=== PATIENT | female | born 1995 | race Caucasian/White ===

== ENCOUNTER 2017-04-03 13:15 | Inpatient (IN) | payer OTHER ==
[~2017-04-03] VITALS: Ht 154.9 cm; Wt 44.5 kg
[2017-04-03] MEDS: POTASSIUM CHLORIDE (SR) 20 MEQ TAB PO SCH ×2 (00:50→20:53)
[2017-04-03 14:51] VITALS: Ht 154.9 cm; Wt 44.5 kg
[2017-04-03] MEDS ORDERED: DOXY1TAB3 PO (14:51)
[2017-04-03 14:52] VITALS: BP 132/75; PULSE 100; RESP 20
--- NOTE | 2017-04-03 15:14 | HP ---
Date/Time of Note Date/Time of Note DATE: 04/03/17 TIME: 15:09 Assessment/Plan VTE Prophylaxis VTE Prophylaxis Intervention: SCD's Assessment/Plan Chief Complaint/Hosp Course Patient is a 21-year-old female who presents with intractable nausea and vomiting. Patient is 11 weeks Assessment and plan Nausea, vomiting , 11 weeks Suprapubic pain -Sent by direct admit, Dr. Bhakta is aware -As patient is and of still having nausea and vomiting, will have to start IV fluids for fluid resuscitation, Zofran until patient able to tolerate p.o. -OB recommendations on nausea medication once patient is able to tolerate p.o. -UA and culture sent out for suprapubic pain, will have to start medication such as ceftriaxone if patient positive -We will follow up in the morning with labs Problems: HPI/ROS Admit Date/Time Admit Date/Time Apr 03, 2017 at 14:02 Hx of Present Illness Patient is a 21-year-old otherwise healthy female who is 11 weeks , obese Dr. Bhakta, who presents as a direct admit from Dr. Bhakta's office for intractable nausea vomiting. Patient states that she has been vomiting for approximately over 1 week and has not had a bowel movement for 6 days. Patient states that she takes no medications and she also has a mild suprapubic pain. Patient denies any chest pain, shortness of breath, headache at this time and states that the last time she vomited was this morning but is nauseous currently. PMH: 11 week PSH: None Meds: none PMH/Family/Social Social History Smoking Status: Never smoker Exam/Review of Systems Vital Signs Vitals Vital Signs Date Time Temp Pulse Resp B/P Pulse Ox O2 Delivery O2 Flow Rate FiO2 04/03/17 14:52 98.0 100 20 132/75 Room Air Exam Exam Physical exam General: Patient is laying in bed and answers questions appropriately Mentation: Patient is alert and oriented 4, Head: Normocephalic atraumatic Eyes: EOMI, pupils reactive to light Neck: Supple, nontender, midline Respiratory: Clear to auscultation bilaterally Cardiovascular: regular rate, no obvious murmurs Gastrointestinal: non-tender to palpation, bowel sounds heard. mild suprapubic tenderness Neurological: Moves all extremities spontaneously Skin: No new skin lesions Medications Medications Current Medications Dextrose/Sodium Chloride (D5-1/2ns) 1,000 ml @ 75 mls/hr [id number] IV ; Start at 15:01 Ondansetron HCl (Zofran Inj) 4 mg Q6H PRN IV NAUSEA AND/OR VOMITING; Start 03/10 at 15:30 Acetaminophen (Tylenol Tab) 650 mg Q6H PRN PO PAIN LEVEL 1-3 OR FEVER; Start 04/03/17 at 15:30 JARED CASTELLANOS Apr 03, 2017 15:14
[2017-04-03] MEDS ORDERED: NACL 0.9% 3 ML SYG IV SCH (15:30)
[2017-04-03] MEDS: DEXTROSE 5%-0.45% NACL 1,000 ML IV SCH (15:38)
[2017-04-03 15:43] LABS: BASOPHILS % 0.1 % (0.0-2.0); EOSINOPHILS % 0.1 % (0.0-7.0); HEMATOCRIT 42.8 % (37.0-47.0); HEMOGLOBIN 15.5 g/dl (12.0-16.0); LYMPHOCYTES # 1.7 10^3/ul (0.8-2.9); LYMPHOCYTES % 10.3 % (18.0-55.0); MEAN CORPUSCULAR HEMOGLOBIN 30.5 pg (29.0-33.0); MEAN CORPUSCULAR HGB CONC 36.2 g/dl (32.0-37.0); MEAN CORPUSCULAR VOLUME 84.3 fl (72.0-104.0); MEAN PLATELET VOLUME 10.2 fl (7.4-10.4); MONOCYTE # 1.2 10^3/ul (0.3-0.9); MONOCYTES % 7.4 % (0.0-13.0); NEUTROPHIL # 13.1 10^3/ul (1.6-7.5); NEUTROPHILS % 81.5 % (30.0-74.0); PLATELET COUNT 409 10^3/UL (140-415); RED BLOOD COUNT 5.08 10^6/ul (4.20-5.40); WHITE BLOOD COUNT 16.1 10^3/ul (4.8-10.8)
[2017-04-03] MEDS: ONDANSETRON 4 MG INJ IV PRN ×2 (15:44→21:47)
[2017-04-03 16:02] LABS: ALBUMIN 4.3 g/dl (3.3-4.9); ALBUMIN/GLOBULIN RATIO 1.19; BILIRUBIN,INDIRECT 0.7 mg/dl (0-1.1); BILIRUBIN,TOTAL 0.7 mg/dl (0.2-1.3); CALCIUM 8.8 mg/dl (8.4-10.2); CREATININE 0.58 mg/dl (0.44-1.00); TOTAL PROTEIN 7.9 g/dl (6.1-8.1)
[2017-04-03 16:04] LABS: POTASSIUM 2.2 mmol/L (3.5-5.1)
[2017-04-03] MEDS ORDERED: POTASSIUM CHLORIDE 250 ML IVPB SCH (17:00)
[2017-04-03 17:02] LABS: MAGNESIUM 2.1 mg/dl (1.7-2.5); PHOSPHORUS 3.9 mg/dl (2.5-4.9)
[2017-04-04] MEDS: ACETAMINOPHEN 325 MG TAB PO PRN ×3 (02:15→23:07)
[2017-04-04 02:38] LABS: ADD UMIC YES; UR ASCORBIC ACID NEGATIVE (NEGATIVE); UR BILIRUBIN (Dip) 1+ mg/dL (NEGATIVE); UR BLOOD (Dip) NEGATIVE (NEGATIVE); UR CLARITY CLEAR (CLEAR); UR COLOR AMBER (YELLOW); UR GLUCOSE (Dip) 3+ mg/dL (NEGATIVE); UR KETONES (Dip) 1+ mg/dL (NEGATIVE); UR LEUKOCYTE ESTERASE (Dip) NEGATIVE Leu/ul (NEGATIVE); UR MUCUS FEW /HPF (NONE SEEN); UR NITRITE (Dip) NEGATIVE (NEGATIVE); UR RBC 1 /HPF (0-5); UR SPECIFIC GRAVITY (Dip) 1.022 (1.003-1.030); UR SQUAMOUS EPITHELIAL CELL FEW /HPF (FEW); UR TOTAL PROTEIN (Dip) 1+ mg/dl (NEGATIVE); UR UROBILINOGEN (Dip) 2+ mg/dL (NEGATIVE)
[2017-04-04] MEDS: ONDANSETRON 4 MG INJ IV PRN ×3 (05:13→20:04)
[2017-04-04] MEDS: DEXTROSE 5%-0.45% NACL 1,000 ML IV SCH (05:13)
[2017-04-04 06:48] LABS: BASOPHILS % 0.2 % (0.0-2.0); EOSINOPHILS # 0.1 10^3/ul (0.0-0.5); EOSINOPHILS % 0.5 % (0.0-7.0); HEMATOCRIT 39.4 % (37.0-47.0); HEMOGLOBIN 14.1 g/dl (12.0-16.0); LYMPHOCYTES # 2.7 10^3/ul (0.8-2.9); MEAN CORPUSCULAR HEMOGLOBIN 30.4 pg (29.0-33.0); MEAN CORPUSCULAR HGB CONC 35.8 g/dl (32.0-37.0); MEAN CORPUSCULAR VOLUME 84.9 fl (72.0-104.0); MEAN PLATELET VOLUME 10.2 fl (7.4-10.4); MONOCYTE # 1.5 10^3/ul (0.3-0.9); MONOCYTES % 9.4 % (0.0-13.0); NEUTROPHIL # 11.5 10^3/ul (1.6-7.5); NEUTROPHILS % 72.1 % (30.0-74.0); PLATELET COUNT 367 10^3/UL (140-415); RED BLOOD COUNT 4.64 10^6/ul (4.20-5.40); RED CELL DISTRIBUTION WIDTH 12.3 % (11.5-14.5)
[2017-04-04 07:03] LABS: ALBUMIN 3.8 g/dl (3.3-4.9); ALBUMIN/GLOBULIN RATIO 1.22; BILIRUBIN,DIRECT 0.1 mg/dl (0.00-0.20); BILIRUBIN,INDIRECT 0.7 mg/dl (0-1.1); BILIRUBIN,TOTAL 0.8 mg/dl (0.2-1.3); CALCIUM 8.7 mg/dl (8.4-10.2); CREATININE 0.56 mg/dl (0.44-1.00); MAGNESIUM 2.2 mg/dl (1.7-2.5); TOTAL PROTEIN 6.9 g/dl (6.1-8.1)
[2017-04-04 07:10] LABS: POTASSIUM 2.4 mmol/L (3.5-5.1)
[2017-04-04] MEDS ORDERED: INFLUENZA VIRUS VACCINE 0.5 ML SYG IM* ONE (09:00)
[2017-04-04] MEDS ORDERED: POTASSIUM CHLORIDE 250 ML IVPB SCH (11:30)
--- NOTE | 2017-04-04 11:43 | PN ---
Date/Time of Note Date/Time of Note DATE: 04/04/17 TIME: 11:43 Assessment/Plan VTE Prophylaxis VTE Prophylaxis Intervention: SCD's Lines/Catheters IV Catheter Type (from Nrsg): Peripheral IV Assessment/Plan Assessment/Plan 1. Nausea with vomiting - IVF and Zofran PRN - Sent as direct admit by OB, Dr. Bhakta - Continue on clear liquid diet and will advance as tolerated 2. Hypokalemia - Replaced. Will continue monitoring - Not tolerating IV K due to burning or PO due to nausea. Will place K in IVF 3. Constipation - Will give milk of mag and monitor for BP - Encourage PO hydration and will try prune juice 4. ?UTI - suprapubic tenderness - UA negative for acute infection but given symptoms will treat with Ceftriaxone - Await urine cultures 5. Transaminitis - may be secondary to dehydration. will continue to monitor and if remains elevated, consult GI 6. Disposition - Continue monitoring Subjective 24 Hr Interval Summary Free Text/Dictation patient still experiencing nausea with vomiting and unable to tolerate PO intake. Also c/o constipation as well. No acute overnight events. Exam/Review of Systems Vital Signs Vitals Vital Signs Date Time Temp Pulse Resp B/P Pulse Ox O2 Delivery O2 Flow Rate FiO2 04/03/17 14:52 98.0 100 20 132/75 Room Air Intake and Output 04/03/17 04/03/17 04/04/17 15:00 23:00 07:00 Intake Total 600 ml 840 ml Output Total 500 ml Balance 600 ml 340 ml Exam General: Patient in mild distress secondary to nausea. Pt is laying in bed and answers questions appropriately Mentation: Patient is alert and oriented 4, Head: Normocephalic atraumatic Eyes: EOMI, pupils reactive to light Neck: Supple, nontender, midline Respiratory: Clear to auscultation bilaterally Cardiovascular: regular rate, no obvious murmurs Gastrointestinal: non-tender to palpation, bowel sounds heard. mild suprapubic tenderness Neurological: Moves all extremities spontaneously Skin: No new skin lesions Results Result Diagram: 04/04/17 0620 04/04/17 0620 Results 24 hrs Laboratory Tests Test 04/03/17 15:37 04/03/17 23:45 04/04/17 06:20 White Blood Count 16.1 H 16.0 H Red Blood Count 5.08 4.64 Hemoglobin 15.5 14.1 Hematocrit 42.8 39.4 Mean Corpuscular Volume 84.3 84.9 Mean Corpuscular Hemoglobin 30.5 30.4 Mean Corpuscular Hemoglobin Concent 36.2 35.8 Red Cell Distribution Width 12.0 12.3 Platelet Count 409 367 Mean Platelet Volume 10.2 10.2 Neutrophils % 81.5 H 72.1 Lymphocytes % 10.3 L 17.0 L Monocytes % 7.4 9.4 Eosinophils % 0.1 0.5 Basophils % 0.1 0.2 Nucleated Red Blood Cells % 0.0 0.0 Neutrophils # 13.1 H 11.5 H Lymphocytes # 1.7 2.7 Monocytes # 1.2 H 1.5 H Eosinophils # 0.0 0.1 Basophils # 0.0 0.0 Nucleated Red Blood Cells # 0.0 0.0 Sodium Level 132 L 133 L Potassium Level 2.2 *L 2.4 *L Chloride Level 78 L 84 L Carbon Dioxide Level 39 H 37 H Anion Gap 17 H 14 Blood Urea Nitrogen 15 13 Creatinine 0.58 0.56 Glucose Level 258 H 137 # Calcium Level 8.8 8.7 Phosphorus Level 3.9 Magnesium Level 2.1 2.2 Total Bilirubin 0.7 0.8 Direct Bilirubin 0.00 0.10 Indirect Bilirubin 0.7 0.7 Aspartate Amino Transf (AST/SGOT) 225 H 211 H Alanine Aminotransferase (ALT/SGPT) 608 H 619 H Alkaline Phosphatase 118 101 Total Protein 7.9 6.9 # Albumin 4.3 3.8 Globulin 3.60 H 3.10 Albumin/Globulin Ratio 1.19 1.22 Urine Color BRITTANY Urine Clarity CLEAR Urine pH 7.0 Urine Specific [place] 1.022 Urine Ketones 1+ H Urine Nitrite NEGATIVE Urine Bilirubin 1+ H Urine Urobilinogen 2+ H Urine Leukocyte Esterase NEGATIVE Urine Microscopic RBC 1 Urine Microscopic WBC 2 Urine Squamous Epithelial Cells FEW Urine Mucus FEW A Urine Hemoglobin NEGATIVE Urine Glucose 3+ H Urine Total Protein 1+ H Medications Medications Current Medications Dextrose/Sodium Chloride (D5-1/2ns) 1,000 ml @ 75 mls/hr [id number] IV Last administered on 04/04/17t 05:13; Admin Dose 75 MLS/HR; Start 04/03/17 at 15:01 Ondansetron HCl (Zofran Inj) 4 mg Q6H PRN IV NAUSEA AND/OR VOMITING Last administered on 04/04/17 05:13; Admin Dose 4 MG; Start 04/03/17 at 15:30 Acetaminophen 650 mg 650 mg Q6H PRN PO PAIN LEVEL 1-3 OR FEVER Last administered on 04/04/17 02:15; Admin Dose 650 MG; Start 04/03/17 at 15:30 Potassium Chloride (KCl 40 MEQ/250 ML NS) 250 ml @ 62.5 mls/hr Q4H IVPB ; Start 04/04/17 at 11:30; Stop 04/04/17 at 19:29 PRESTON LOREDO MD Apr 04, 2017 11:43
[2017-04-04] MEDS: MAGNESIUM HYDROXIDE 30ML CUP PO SCH (12:46)
[2017-04-04] MEDS: CEFTRIAXONE 1 GM/50 ML (PMX) 50 ML IVPB SCH (13:15)
[2017-04-04] MEDS: D5W-0.45 NACL + KCL 40 MEQ 1,000 ML IV SCH (13:15)
[2017-04-05] MEDS: D5W-0.45 NACL + KCL 40 MEQ 1,000 ML IV SCH ×2 (01:52→15:09)
[2017-04-05 06:32] LABS: BASOPHILS % 0.3 % (0.0-2.0); EOSINOPHILS # 0.1 10^3/ul (0.0-0.5); EOSINOPHILS % 0.8 % (0.0-7.0); HEMATOCRIT 34.9 % (37.0-47.0); HEMOGLOBIN 12.6 g/dl (12.0-16.0); LYMPHOCYTES # 2.3 10^3/ul (0.8-2.9); LYMPHOCYTES % 16.3 % (18.0-55.0); MEAN CORPUSCULAR HGB CONC 36.1 g/dl (32.0-37.0); MEAN PLATELET VOLUME 10.1 fl (7.4-10.4); MONOCYTE # 1.4 10^3/ul (0.3-0.9); MONOCYTES % 10.2 % (0.0-13.0); NEUTROPHILS % 71.7 % (30.0-74.0); PLATELET COUNT 329 10^3/UL (140-415); RED BLOOD COUNT 4.06 10^6/ul (4.20-5.40); RED CELL DISTRIBUTION WIDTH 12.2 % (11.5-14.5)
[2017-04-05] MEDS: ONDANSETRON 4 MG INJ IV PRN ×2 (07:43→20:17)
[2017-04-05 07:55] LABS: ALBUMIN/GLOBULIN RATIO 0.93; BILIRUBIN,INDIRECT 0.4 mg/dl (0-1.1); BILIRUBIN,TOTAL 0.4 mg/dl (0.2-1.3); CALCIUM 8.1 mg/dl (8.4-10.2); CREATININE 0.45 mg/dl (0.44-1.00); MAGNESIUM 2.3 mg/dl (1.7-2.5); TOTAL PROTEIN 6.2 g/dl (6.1-8.1)
[2017-04-05 07:59] LABS: POTASSIUM 2.8 mmol/L (3.5-5.1)
[2017-04-05] MEDS: MAGNESIUM HYDROXIDE 30ML CUP PO SCH (09:00)
[2017-04-05] MEDS ORDERED: POTASSIUM CHLORIDE (SR) 20 MEQ TAB PO STA (09:04)
[2017-04-05] MEDS: ACETAMINOPHEN 325 MG TAB PO PRN (10:02)
--- NOTE | 2017-04-05 11:15 | PN ---
Date/Time of Note Date/Time of Note DATE: 04/05/17 TIME: 11:00 OB Subjective Subjective Subjective still having severe nausea and vomiting vomiting x6 yesterday this morning already x6 c/o epigastric discomfort OB Objective Objective Objective K+ 2.8 AST/ALT > 112/400 urine culture not sig abdomen soft no tenderness OB Assessment/Plan Other Assessment: [id number]+ hyperemesis gravidarum R/o other cause P throid panel hep panel zofran ist trimester poss risk of teratogenicity suggest metoclopramide doxylamine/pyridoxine pyridoxine 50mg IV ANNAMARIA GARCIA MD Apr 05, 2017 11:14
[2017-04-05 12:21] LABS: HAAIG REFLEX REFLEX FILED
--- NOTE | 2017-04-05 12:41 | PN ---
Date/Time of Note Date/Time of Note DATE: 04/05/17 TIME: 12:35 Assessment/Plan VTE Prophylaxis VTE Prophylaxis Intervention: ambulation Lines/Catheters IV Catheter Type (from Nrsg): Peripheral IV Assessment/Plan Assessment/Plan 1. Nausea with vomiting - IVF and will change Zofran to metoclopramide per Dr. Moralez recommendations - Sent as direct admit by OB, Dr. Bhakta - Continue on clear liquid diet and will advance as tolerated 2. Hypokalemia - Replaced. Will continue monitoring 3. Constipation - Will give milk of mag and monitor for BP - Encourage PO hydration and will try prune juice 4. ?UTI - suprapubic tenderness - UA negative for acute infection but given symptoms will treat with Ceftriaxone - Await urine cultures 5. Transaminitis - may be secondary to dehydration. will continue to monitor - trending downward 6. Disposition - Continue monitoring Subjective 24 Hr Interval Summary Free Text/Dictation Patient not feeling well today and more weak than yesterday. Tolerating clear liquids but still experiencing nausea with vomiting. No acute overnight events. Exam/Review of Systems Vital Signs Vitals Vital Signs Date Time Temp Pulse Resp B/P Pulse Ox O2 Delivery O2 Flow Rate FiO2 04/03/17 14:52 98.0 100 20 132/75 Room Air Intake and Output 04/04/17 04/04/17 04/05/17 15:00 23:00 07:00 Intake Total 575 ml 625 ml 800 ml Output Total 700 ml Balance 575 ml -75 ml 800 ml Exam General: Patient in mild distress and fatigued, laying in bed and answers questions appropriately Mentation: Patient is alert and oriented 4, Head: Normocephalic atraumatic Eyes: EOMI, pupils reactive to light Neck: Supple, nontender, midline Respiratory: Clear to auscultation bilaterally Cardiovascular: regular rate, no obvious murmurs Gastrointestinal: non-tender to palpation, bowel sounds heard. mild suprapubic tenderness Neurological: Moves all extremities spontaneously Skin: No new skin lesions Results Result Diagram: 04/05/1715 04/05/17 0615 Results 24 hrs Laboratory Tests Test 04/05/17 06:15 04/05/17 11:38 White Blood Count 14.0 H Red Blood Count 4.06 L Hemoglobin 12.6 Hematocrit 34.9 L Mean Corpuscular Volume 86.0 Mean Corpuscular Hemoglobin 31.0 Mean Corpuscular Hemoglobin Concent 36.1 Red Cell Distribution Width 12.2 Platelet Count 329 Mean Platelet Volume 10.1 Neutrophils % 71.7 Lymphocytes % 16.3 L Monocytes % 10.2 Eosinophils % 0.8 Basophils % 0.3 Nucleated Red Blood Cells % 0.0 Neutrophils # 10.0 H Lymphocytes # 2.3 Monocytes # 1.4 H Eosinophils # 0.1 Basophils # 0.0 Nucleated Red Blood Cells # 0.0 Sodium Level 132 L Potassium Level 2.8 *L Chloride Level 93 L Carbon Dioxide Level 33 H Anion Gap 9 # Blood Urea Nitrogen 7 Creatinine 0.45 Glucose Level 92 # Calcium Level 8.1 L Magnesium Level 2.3 Total Bilirubin 0.4 Direct Bilirubin 0.00 Indirect Bilirubin 0.4 Aspartate Amino Transf (AST/SGOT) 110 H Alanine Aminotransferase (ALT/SGPT) 462 H Alkaline Phosphatase 80 Total Protein 6.2 Albumin 3.0 L Globulin 3.20 Albumin/Globulin Ratio 0.93 Hepatitis B Surface Antigen Pending Hepatitis B Core Total Antibody Pending Hepatitis C Antibody Pending Medications Medications Current Medications Ondansetron HCl (Zofran Inj) 4 mg Q6H PRN IV NAUSEA AND/OR VOMITING Last administered on 04/05/17 07:43; Admin Dose 4 MG; Start 04/03/17 at 15:30 Acetaminophen 650 mg 650 mg Q6H PRN PO PAIN LEVEL 1-3 OR FEVER Last administered on 04/05/17 10:02; Admin Dose 650 MG; Start 04/03/17 at 15:30 Ceftriaxone Sodium 50 ml @ 100 mls/hr Q24H IVPB Last administered on 13:15; Admin Dose 100 MLS/HR; Start 04/04/17 at 13:00 Potassium Chloride/Dextrose/ Sod Cl (D5-1/2ns + KCl 40 Meq) 1,000 ml @ 75 mls/ hr [id number] IV Last administered on 04/05/17 01:52; Admin Dose 75 MLS/HR; Start 04/04/17 at 12:30 Magnesium Hydroxide (Milk Of Mag) 30 ml DAILY PO Last administered on 12:46; Admin Dose 30 ML; Start 04/04/17 at 12:30 Potassium Chloride (Klor-Con 20) 40 meq 1300 ONCE PO ; Start 04/05/17 at 13:00 ; Stop 04/05/17 at 13:01 PRESTON LOREDO MD Apr 05, 2017 12:41
[2017-04-05 12:58] LABS: FREE T3 5.77 pg/ml (2.77-5.27)
[2017-04-05] MEDS ORDERED: POTASSIUM CHLORIDE (SR) 20 MEQ TAB PO ONE (13:00)
[2017-04-05 13:31] LABS: HEPATITIS B CORE ANTIBODY NEGATIVE (NEGATIVE)
[2017-04-05] MEDS: CEFTRIAXONE 1 GM/50 ML (PMX) 50 ML IVPB SCH (13:54)
[2017-04-05 13:59] LABS: THYROID STIMULATING HORMONE < 0.015 MIU/L (0.465-4.680)
[2017-04-05] MEDS: METOCLOPRAMIDE 10 MG INJ IV PRN (15:14)
[2017-04-05] MEDS ORDERED: POTASSIUM CHLORIDE IVPB SCH (15:30)
[2017-04-05] MEDS ORDERED: SOD CHLORIDE 0.9% IVPB SCH (15:30)
[2017-04-06] MEDS: ONDANSETRON 4 MG INJ IV PRN (02:43)
[2017-04-06] MEDS: D5W-0.45 NACL + KCL 40 MEQ 1,000 ML IV SCH ×2 (05:15→17:08)
[2017-04-06 06:19] LABS: ABNORMAL IP MESSAGE 1; BASOPHILS % 0.2 % (0.0-2.0); EOSINOPHILS % 0.3 % (0.0-7.0); HEMATOCRIT 33.8 % (37.0-47.0); HEMOGLOBIN 11.7 g/dl (12.0-16.0); LYMPHOCYTES # 1.6 10^3/ul (0.8-2.9); MEAN CORPUSCULAR HEMOGLOBIN 30.5 pg (29.0-33.0); MEAN CORPUSCULAR HGB CONC 34.6 g/dl (32.0-37.0); MEAN CORPUSCULAR VOLUME 88.3 fl (72.0-104.0); MEAN PLATELET VOLUME 10.3 fl (7.4-10.4); MONOCYTE # 1.6 10^3/ul (0.3-0.9); MONOCYTES % 10.9 % (0.0-13.0); NEUTROPHIL # 11.4 10^3/ul (1.6-7.5); NEUTROPHILS % 76.7 % (30.0-74.0); PLATELET COUNT 287 10^3/UL (140-415); RED BLOOD COUNT 3.83 10^6/ul (4.20-5.40); RED CELL DISTRIBUTION WIDTH 13.1 % (11.5-14.5); WHITE BLOOD COUNT 14.9 10^3/ul (4.8-10.8)
[2017-04-06 06:42] LABS: ALBUMIN 2.9 g/dl (3.3-4.9); BILIRUBIN,INDIRECT 0.3 mg/dl (0-1.1); BILIRUBIN,TOTAL 0.3 mg/dl (0.2-1.3); CREATININE 0.44 mg/dl (0.44-1.00); MAGNESIUM 1.9 mg/dl (1.7-2.5); POTASSIUM 3.6 mmol/L (3.5-5.1); TOTAL PROTEIN 5.8 g/dl (6.1-8.1)
[2017-04-06 06:58] LABS: POSITIVE DIFF @See below
[2017-04-06] MEDS: MAGNESIUM HYDROXIDE 30ML CUP PO SCH (09:33)
[2017-04-06] MEDS ORDERED: VITAMIN A & D 5 GM OINT PACKET TOP PRN (11:30)
[2017-04-06] MEDS ORDERED: CEPASTAT LOZENGE MT PRN (11:30)
[2017-04-06] MEDS: CEFTRIAXONE 1 GM/50 ML (PMX) 50 ML IVPB SCH (12:43)
--- NOTE | 2017-04-06 14:24 | PN ---
Date/Time of Note Date/Time of Note DATE: 04/06/17 TIME: 14:22 Assessment/Plan VTE Prophylaxis VTE Prophylaxis Intervention: SCD's Lines/Catheters IV Catheter Type (from Nrsg): Peripheral IV Assessment/Plan Assessment/Plan 1. Hyperemesis gravidarum - IVF and will change Zofran to metoclopramide per Dr. Moralez recommendations - Sent as direct admit by OB, Dr. Bhakta - Continue on clear liquid diet and will advance as tolerated 2. Acute thyroiditis - Patient has low TSH with elevated T3 and T4. Consultation placed to Endocrinology for further recommendations. Appreciate consultation 3. Constipation - Will give milk of mag and monitor for BP - Encourage PO hydration and will try prune juice 4. ?UTI - suprapubic tenderness - UA negative for acute infection but given symptoms will treat with Ceftriaxone - Await urine cultures 5. Transaminitis - may be secondary to dehydration. will continue to monitor - trending downward 6. Hypokalemia- improving - Replaced. Will continue monitoring 7. Disposition - Continue monitoring until improvement in hyperemesis and able to tolerate PO intake Subjective 24 Hr Interval Summary Free Text/Dictation Patient c/o sore throat for repeated episodes of emesis. Still not able to keep anything down. Also complaining of chapped lips. No acute overnight events. Exam/Review of Systems Vital Signs Vitals Vital Signs Date Time Temp Pulse Resp B/P Pulse Ox O2 Delivery O2 Flow Rate FiO2 04/03/17 14:52 98.0 100 20 132/75 Room Air Intake and Output 04/05/17 04/05/17 04/06/17 14:59 22:59 06:59 Intake Total 275 ml 300 ml 600 ml Output Total 750 ml 750 ml 1100 ml Balance -475 ml -450 ml -500 ml Exam General: Patient in distress, fatigued, curled in position under covers, answers questions appropriately Mentation: Patient is alert and oriented 4, Head: Normocephalic atraumatic Eyes: EOMI, pupils reactive to light Neck: Supple, nontender, midline Respiratory: Clear to auscultation bilaterally Cardiovascular: regular rate, no obvious murmurs Gastrointestinal: non-tender to palpation, bowel sounds heard. mild suprapubic tenderness Neurological: Moves all extremities spontaneously Skin: No new skin lesions Results Result Diagram: 04/06/1731 04/06/17530 Results 24 hrs Laboratory Tests Test 04/06/17 05:31 White Blood Count 14.9 H Red Blood Count 3.83 L Hemoglobin 11.7 L Hematocrit 33.8 L Mean Corpuscular Volume 88.3 Mean Corpuscular Hemoglobin 30.5 Mean Corpuscular Hemoglobin Concent 34.6 Red Cell Distribution Width 13.1 Platelet Count 287 Mean Platelet Volume 10.3 Neutrophils % 76.7 H Lymphocytes % 11.0 L Monocytes % 10.9 Eosinophils % 0.3 Basophils % 0.2 Nucleated Red Blood Cells % 0.0 Neutrophils # 11.4 H Lymphocytes # 1.6 Monocytes # 1.6 H Eosinophils # 0.0 Basophils # 0.0 Nucleated Red Blood Cells # 0.0 Sodium Level 136 Potassium Level 3.6 Chloride Level 102 Carbon Dioxide Level 28 Anion Gap 10 Blood Urea Nitrogen 3 L Creatinine 0.44 Glucose Level 84 Calcium Level 8.0 L Magnesium Level 1.9 Total Bilirubin 0.3 Direct Bilirubin 0.00 Indirect Bilirubin 0.3 Aspartate Amino Transf (AST/SGOT) 82 H Alanine Aminotransferase (ALT/SGPT) 366 H Alkaline Phosphatase 82 Total Protein 5.8 L Albumin 2.9 L Globulin 2.90 Albumin/Globulin Ratio 1.00 Medications Medications Current Medications Acetaminophen 650 mg 650 mg Q6H PRN PO PAIN LEVEL 1-3 OR FEVER Last administered on 04/05/17 10:02; Admin Dose 650 MG; Start 04/03/17 at 15:30 Ceftriaxone Sodium 50 ml @ 100 mls/hr Q24H IVPB Last administered on 12:43; Admin Dose 100 MLS/HR; Start 04/04/17 at 13:00 Potassium Chloride/Dextrose/ Sod Cl (D5-1/2ns + KCl 40 Meq) 1,000 ml @ 75 mls/ hr [id number] IV Last administered on 04/06/17 05:15; Admin Dose 75 MLS/HR; Start 04/04/17 at 12:30 Magnesium Hydroxide (Milk Of Mag) 30 ml DAILY PO Last administered on 09:33; Admin Dose 30 ML; Start 04/04/17 at 12:30 Metoclopramide HCl (Reglan) 5 mg Q4H PRN IV nausea Last administered on 15:14; Admin Dose 5 MG; Start 04/05/17 at 13:00 Ondansetron HCl (Zofran Inj) 4 mg Q6H PRN IV NAUSEA AND/OR VOMITING Last administered on 04/06/17 02:43; Admin Dose 4 MG; Start 04/05/17 at 15:00 Phenol (Cepastat Lozenge) 1 lozenge Q1H PRN MT sore throat; Start 04/06/17 at 11:30 Vitamin A/Vitamin D (Vitamin A & D Oint) 1 applic BID PRN TOP chapped lips Last administered on 04/06/17 12:43; Admin Dose 1 APPLIC; Start 04/06/17 at 11:30 PRESTON LOREDO MD Apr 06, 2017 14:24
[2017-04-06] MEDS: METOCLOPRAMIDE 10 MG INJ IV PRN (17:08)
--- NOTE | 2017-04-06 19:52 | PN ---
Date/Time of Note Date/Time of Note DATE: 04/06/17 TIME: 19:46 OB Subjective Subjective Subjective feels better having small feeding helps c/o sore throat mostlikely from vomiting OB Objective Objective Objective I&O pos balance today tongue moist \thyroid high K+ 3.6 LFT better hepatitis panel neg OB Assessment/Plan Other Assessment: hyperemesis gravidarum IUP 11w plus hyperthyroidism endocrinology consult requested by hospitalist Other plan: cont current regimen more frequent small feeding ANNAMARIA GARCIA MD Apr 06, 2017 19:52
[2017-04-06] MEDS: PYRIDOXINE IV SCH (22:27)
[2017-04-06] MEDS: SOD CHLORIDE 0.9% IV SCH (22:27)
[2017-04-07] MEDS: ONDANSETRON 4 MG INJ IV PRN (01:34)
[2017-04-07 06:28] LABS: BASOPHILS % 0.3 % (0.0-2.0); EOSINOPHILS # 0.1 10^3/ul (0.0-0.5); EOSINOPHILS % 0.4 % (0.0-7.0); HEMATOCRIT 33.5 % (37.0-47.0); HEMOGLOBIN 11.6 g/dl (12.0-16.0); LYMPHOCYTES # 1.5 10^3/ul (0.8-2.9); LYMPHOCYTES % 12.5 % (18.0-55.0); MEAN CORPUSCULAR HEMOGLOBIN 30.8 pg (29.0-33.0); MEAN CORPUSCULAR HGB CONC 34.6 g/dl (32.0-37.0); MEAN CORPUSCULAR VOLUME 88.9 fl (72.0-104.0); MONOCYTE # 1.5 10^3/ul (0.3-0.9); MONOCYTES % 12.8 % (0.0-13.0); NEUTROPHIL # 8.5 10^3/ul (1.6-7.5); PLATELET COUNT 280 10^3/UL (140-415); RED BLOOD COUNT 3.77 10^6/ul (4.20-5.40); RED CELL DISTRIBUTION WIDTH 13.1 % (11.5-14.5); WHITE BLOOD COUNT 11.7 10^3/ul (4.8-10.8)
[2017-04-07] MEDS: D5W-0.45 NACL + KCL 40 MEQ 1,000 ML IV SCH ×2 (06:34→19:52)
[2017-04-07] MEDS: METOCLOPRAMIDE 10 MG INJ IV PRN ×3 (06:40→22:10)
[2017-04-07 07:01] LABS: ALBUMIN 2.9 g/dl (3.3-4.9); BILIRUBIN,INDIRECT 0.3 mg/dl (0-1.1); BILIRUBIN,TOTAL 0.3 mg/dl (0.2-1.3); CALCIUM 8.1 mg/dl (8.4-10.2); CREATININE 0.43 mg/dl (0.44-1.00); MAGNESIUM 1.9 mg/dl (1.7-2.5); POTASSIUM 4.3 mmol/L (3.5-5.1); TOTAL PROTEIN 5.8 g/dl (6.1-8.1)
[2017-04-07 08:38] LABS: FREE T3 4.18 pg/ml (2.77-5.27)
[2017-04-07 08:51] LABS: THYROID STIMULATING HORMONE 0.016 MIU/L (0.465-4.680)
[2017-04-07] MEDS: SOD CHLORIDE 0.9% IV SCH ×2 (08:53→21:11)
[2017-04-07] MEDS: PYRIDOXINE IV SCH ×2 (08:53→21:11)
[2017-04-07] MEDS: MAGNESIUM HYDROXIDE 30ML CUP PO SCH (09:00)
--- NOTE | 2017-04-07 12:58 | PN ---
Date/Time of Note Date/Time of Note DATE: 04/07/17 TIME: 12:54 OB Subjective Subjective Subjective feels much stronger able to keep food slightly longer OB Objective Objective Objective FT4 2.2 LFT still high OB Assessment/Plan Other Assessment: IUP 12w hyperemesis gravidarum plan small frequent feeding will try ANNAMARIA Cedillo MD Apr 07, 2017 12:58
[2017-04-07] MEDS ORDERED: DIPHENHYDRAMINE 50 MG INJ IV ONE (13:00)
--- NOTE | 2017-04-07 13:16 | CONS ---
Date/Time of Note Date/Time of Note DATE: 04/07/17 TIME: 13:11 Assessment/Plan Assessment/Plan Problems: (1) Hyperemesis gravidarum with dehydration Status: Acute Comment: She is in the first trimester. She is roughly a week 11 of . Hopefully with advancing maturity of the with hyperemesis will resolve. Our colleagues in obstetric are managing this (2) Hyperemesis gravidarum with metabolic disturbance Status: Acute Comment: I believe that in this particular case there is no evidence of pre- existing thyroid disorder. In addition she does not have thyromegaly or exophthalmos or other findings to suggest Graves' disease. In addition repeating her blood tests after successful rehydration indicates improvement in her thyroid status toward a baseline state. In this setting I actually am in agreement with Dr. 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 This is an entity it usually occurs between the 10th and 12th week of gestation and is caused by the very high hCG level stimulating the thyroid gland is across reactive moiety to the TSH receptors on the thyroid. It is usually self-limited and does not require specific treatment other than the treatment of hyperemesis gravidarum and resolves in the second trimester. As such I would not initiate pharmaceutical therapy in this young lady and would observe her. I would repeat her blood tests in 1 week and then in 2 weeks. Consultation Date/Type/Reason Admit Date/Time Apr 03, 2017 at 14:02 Date of Consultation: Apr 07, 2017 Type of Consultation: Endocrinology Reason for Consultation Hyperthyroidism at the tail end of the first trimester . In the setting of hyperemesis gravidarum. Referring Provider: PRESTON RESENDEZ MD Hx of Present Illness Alex 21-year-old female Ab0 with last menstrual cycle January 09, 2017 with an EDC of October 16, 2017. No known prior history of thyroid disorder. She was admitted to the hospital with hyperemesis gravidarum with severe dehydration. She has been rehydrated what was found to be hyperthyroid. In the recent past she has had some symptoms consistent with thyrotoxicosis but this is relatively recent and did not predate the . Constitutional: no complaints (Denies fevers chills or sweats) Eyes: no complaints (And denies any bulging of the eyes) ENT: no complaints Respiratory: no complaints Cardiovascular: no complaints Gastrointestinal: nausea, vomiting Genitourinary: no complaints Musculoskeletal: no complaints Past Medical History Medical History: no pertinent history Past Surgical History Past Surgical Hx: noncontributory Family History Significant Family History: no pertinent family hx Social History Alcohol Use: none Smoking Status: Never smoker Drug Use: none Exam/Review of Systems Vital Signs Vitals Vital Signs Date Time Temp Pulse Resp B/P Pulse Ox O2 Delivery O2 Flow Rate FiO2 04/03/17 14:52 98.0 100 20 132/75 Room Air Intake and Output 04/06/17 04/06/17 04/07/17 14:59 22:59 06:59 Intake Total 650 ml 450 ml 600 ml Output Total 350 ml Balance 300 ml 450 ml 600 ml Exam Please note this has after successful treatment and rehydration. Patient is still rather obviously nauseated and occasionally has dry heaves during the exam Constitutional: alert, oriented Head: atraumatic, normocephalic Eyes: EOMI, PERRL, nl conjunctiva, nl lids, nl sclera, other (There is no exophthalmos) Neck: non-tender, other (There is no thyromegaly or thyroid nodules), supple Respiratory: clear to auscultation, normal air movement Cardiovascular: nl pulses, regular rate and rhythm Results Result Diagram: 04/07/1755504/07/17 0556 Results 24 hrs Laboratory Tests Test 04/07/17 05:56 White Blood Count 11.7 #H Red Blood Count 3.77 L Hemoglobin 11.6 L Hematocrit 33.5 L Mean Corpuscular Volume 88.9 Mean Corpuscular Hemoglobin 30.8 Mean Corpuscular Hemoglobin Concent 34.6 Red Cell Distribution Width 13.1 Platelet Count 280 Mean Platelet Volume 10.0 Neutrophils % 73.0 Lymphocytes % 12.5 L Monocytes % 12.8 Eosinophils % 0.4 Basophils % 0.3 Nucleated Red Blood Cells % 0.0 Neutrophils # 8.5 H Lymphocytes # 1.5 Monocytes # 1.5 H Eosinophils # 0.1 Basophils # 0.0 Nucleated Red Blood Cells # 0.0 Erythrocyte Sedimentation Rate 9 Sodium Level 135 Potassium Level 4.3 Chloride Level 103 Carbon Dioxide Level 27 Anion Gap 9 Blood Urea Nitrogen 2 L Creatinine 0.43 L Glucose Level 89 Calcium Level 8.1 L Magnesium Level 1.9 Total Bilirubin 0.3 Direct Bilirubin 0.00 Indirect Bilirubin 0.3 Aspartate Amino Transf (AST/SGOT) 77 H Alanine Aminotransferase (ALT/SGPT) 308 H Alkaline Phosphatase 95 Total Protein 5.8 L Albumin 2.9 L Globulin 2.90 Albumin/Globulin Ratio 1.00 Thyroid Stimulating Hormone (TSH) 0.016 L Free Thyroxine 2.22 Free Triiodothyronine (T3) pg/mL 4.18 Medications Medications Current Medications Acetaminophen 650 mg 650 mg Q6H PRN PO PAIN LEVEL 1-3 OR FEVER Last administered on 04/05/17 10:02; Admin Dose 650 MG; Start 04/03/17 at 15:30 Ceftriaxone Sodium 50 ml @ 100 mls/hr Q24H IVPB Last administered on 12:43; Admin Dose 100 MLS/HR; Start 04/04/17 at 13:00 Potassium Chloride/Dextrose/ Sod Cl (D5-1/2ns + KCl 40 Meq) 1,000 ml @ 75 mls/ hr [id number] IV Last administered on 04/07/17 06:34; Admin Dose 75 MLS/HR; Start 04/04/17 at 12:30 Magnesium Hydroxide (Milk Of Mag) 30 ml DAILY PO Last administered on 09:33; Admin Dose 30 ML; Start 04/04/17 at 12:30 Metoclopramide HCl (Reglan) 5 mg Q4H PRN IV nausea Last administered on 06:40; Admin Dose 5 MG; Start 04/05/17 at 13:00 Ondansetron HCl (Zofran Inj) 4 mg Q6H PRN IV NAUSEA AND/OR VOMITING Last administered on 04/07/17 01:34; Admin Dose 4 MG; Start 04/05/17 at 15:00 Phenol (Cepastat Lozenge) 1 lozenge Q1H PRN MT sore throat; Start 04/06/17 at 11:30 Vitamin A/Vitamin D 1 applic 1 applic BID PRN TOP chapped lips Last administered on 04/06/17 12:43; Admin Dose 1 APPLIC; Start 04/06/17 at 11:30 Pyridoxine HCl/ Sodium Chloride (Vitamin B6/NS) 50.25 ml @ 201 mls/hr Q12 IV Last administered on 04/07/17 08:53; Admin Dose 201 MLS/HR; Start 04/06/17 at 22:00 SRIKANTH MANDUJANO MD Apr 07, 2017 13:16
[2017-04-07 13:56] LABS: THYROID MICROSOMAL ANTIBODY 7 IU/mL (<9)
--- NOTE | 2017-04-07 14:09 | PN ---
Date/Time of Note Date/Time of Note DATE: 04/07/17 TIME: 13:58 Assessment/Plan VTE Prophylaxis VTE Prophylaxis Intervention: SCD's Lines/Catheters IV Catheter Type (from Nrsg): Peripheral IV Assessment/Plan Assessment/Plan 1. Hyperemesis gravidarum - continue hydration while able to tolerate PO diet - Given dose of Benadryl per OB recommendations - OB consult appreciated - Sent as direct admit by OB, Dr. Bhakta - Continue on clear liquid diet and will advance as tolerated. still vomiting after meals 2. Gestational thyrotoxicosis - Patient repeat thyroid studies show normalization of T3 and T4 and improvement in TSH. - Endocrinology consultation appreciated. Recommending no intervention at this time and to repeat thyroid studies in 1 week and 2 weeks 3. Constipation- resolved - encouraged to continue PO hydration 4. ?UTI - suprapubic tenderness - UA negative for acute infection but given symptoms will treat with Ceftriaxone - Cultures growing mixed ary. 5. Transaminitis- improving - may be secondary to dehydration. will continue to monitor - trending downward 6. Hypokalemia- improved - Will continue monitoring 7. Disposition - Continue monitoring until improvement in hyperemesis and able to tolerate PO intake Subjective 24 Hr Interval Summary Free Text/Dictation Patient feeling better but still experiencing vomiting after meals. Has some LLQ abdominal discomfort which is most likely secondary to vomiting. Exam/Review of Systems Vital Signs Vitals Vital Signs Date Time Temp Pulse Resp B/P Pulse Ox O2 Delivery O2 Flow Rate FiO2 04/03/17 14:52 98.0 100 20 132/75 Room Air Intake and Output 04/06/17 04/06/17 04/07/17 15:00 23:00 07:00 Intake Total 650 ml 525 ml 600 ml Output Total 350 ml Balance 300 ml 525 ml 600 ml Exam General: Patient resting comfortably, in no acute distress. Answers questions appropriately Mentation: Patient is alert and oriented 4, Head: Normocephalic atraumatic Eyes: EOMI, pupils reactive to light Neck: Supple, nontender, midline Respiratory: Clear to auscultation bilaterally Cardiovascular: regular rate, no obvious murmurs Gastrointestinal: Mild tenderness to palpation LLQ, soft, bowel sounds heard. no rebound or guarding Neurological: Moves all extremities spontaneously Skin: No new skin lesions Results Result Diagram: 04/07/17 0556 04/07/17 0556 Results 24 hrs Laboratory Tests Test 04/07/17 05:56 White Blood Count 11.7 #H Red Blood Count 3.77 L Hemoglobin 11.6 L Hematocrit 33.5 L Mean Corpuscular Volume 88.9 Mean Corpuscular Hemoglobin 30.8 Mean Corpuscular Hemoglobin Concent 34.6 Red Cell Distribution Width 13.1 Platelet Count 280 Mean Platelet Volume 10.0 Neutrophils % 73.0 Lymphocytes % 12.5 L Monocytes % 12.8 Eosinophils % 0.4 Basophils % 0.3 Nucleated Red Blood Cells % 0.0 Neutrophils # 8.5 H Lymphocytes # 1.5 Monocytes # 1.5 H Eosinophils # 0.1 Basophils # 0.0 Nucleated Red Blood Cells # 0.0 Erythrocyte Sedimentation Rate 9 Sodium Level 135 Potassium Level 4.3 Chloride Level 103 Carbon Dioxide Level 27 Anion Gap 9 Blood Urea Nitrogen 2 L Creatinine 0.43 L Glucose Level 89 Calcium Level 8.1 L Magnesium Level 1.9 Total Bilirubin 0.3 Direct Bilirubin 0.00 Indirect Bilirubin 0.3 Aspartate Amino Transf (AST/SGOT) 77 H Alanine Aminotransferase (ALT/SGPT) 308 H Alkaline Phosphatase 95 Total Protein 5.8 L Albumin 2.9 L Globulin 2.90 Albumin/Globulin Ratio 1.00 Thyroid Stimulating Hormone (TSH) 0.016 L Free Thyroxine 2.22 Free Triiodothyronine (T3) pg/mL 4.18 Medications Medications Current Medications Acetaminophen 650 mg 650 mg Q6H PRN PO PAIN LEVEL 1-3 OR FEVER Last administered on 04/05/17 10:02; Admin Dose 650 MG; Start 04/03/17 at 15:30 Ceftriaxone Sodium 50 ml @ 100 mls/hr Q24H IVPB Last administered on 12:43; Admin Dose 100 MLS/HR; Start 04/04/17 at 13:00 Potassium Chloride/Dextrose/ Sod Cl (D5-1/2ns + KCl 40 Meq) 1,000 ml @ 75 mls/ hr [id number] IV Last administered on 04/07/17 06:34; Admin Dose 75 MLS/HR; Start 04/04/17 at 12:30 Magnesium Hydroxide (Milk Of Mag) 30 ml DAILY PO Last administered on 09:33; Admin Dose 30 ML; Start 04/04/17 at 12:30 Metoclopramide HCl (Reglan) 5 mg Q4H PRN IV nausea Last administered on 06:40; Admin Dose 5 MG; Start 04/05/17 at 13:00 Ondansetron HCl (Zofran Inj) 4 mg Q6H PRN IV NAUSEA AND/OR VOMITING Last administered on 04/07/17 01:34; Admin Dose 4 MG; Start 04/05/17 at 15:00 Phenol (Cepastat Lozenge) 1 lozenge Q1H PRN MT sore throat; Start 04/06/17 at 11:30 Vitamin A/Vitamin D 1 applic 1 applic BID PRN TOP chapped lips Last administered on 04/06/17 12:43; Admin Dose 1 APPLIC; Start 04/06/17 at 11:30 Pyridoxine HCl/ Sodium Chloride (Vitamin B6/NS) 50.25 ml @ 201 mls/hr Q12 IV Last administered on 04/07/17 08:53; Admin Dose 201 MLS/HR; Start 04/06/17 at 22:00 PRESTON LOREDO MD Apr 07, 2017 14:09
[2017-04-07] MEDS: CEFTRIAXONE 1 GM/50 ML (PMX) 50 ML IVPB SCH (15:39)
[2017-04-07] MEDS: DEXTROSE 5%-0.45% NACL 1,000 ML IV SCH (22:09)
[2017-04-08] MEDS ORDERED: MAGNESIUM HYDROXIDE 30ML CUP PO ONE (04:30)
[2017-04-08] MEDS: METOCLOPRAMIDE 10 MG INJ IV PRN ×3 (05:47→13:58)
[2017-04-08 06:16] LABS: BASOPHILS % 0.3 % (0.0-2.0); EOSINOPHILS # 0.1 10^3/ul (0.0-0.5); EOSINOPHILS % 0.4 % (0.0-7.0); HEMOGLOBIN 12.3 g/dl (12.0-16.0); LYMPHOCYTES # 1.8 10^3/ul (0.8-2.9); LYMPHOCYTES % 15.9 % (18.0-55.0); MEAN CORPUSCULAR HEMOGLOBIN 31.1 pg (29.0-33.0); MEAN CORPUSCULAR HGB CONC 35.1 g/dl (32.0-37.0); MEAN CORPUSCULAR VOLUME 88.4 fl (72.0-104.0); MONOCYTE # 1.3 10^3/ul (0.3-0.9); MONOCYTES % 11.4 % (0.0-13.0); NEUTROPHILS % 71.5 % (30.0-74.0); PLATELET COUNT 300 10^3/UL (140-415); RED BLOOD COUNT 3.96 10^6/ul (4.20-5.40); RED CELL DISTRIBUTION WIDTH 13.2 % (11.5-14.5); WHITE BLOOD COUNT 11.2 10^3/ul (4.8-10.8)
[2017-04-08 06:41] LABS: ALBUMIN 2.8 g/dl (3.3-4.9); ANION GAP 9 (8-16); CALCIUM 8.9 mg/dl (8.4-10.2); CARBON DIOXIDE 29 mmol/L (21-31); CHLORIDE 102 mmol/L (97-110); CREATININE 0.43 mg/dl (0.44-1.00); GLUCOSE 93 mg/dl (70-220); MAGNESIUM 1.8 mg/dl (1.7-2.5); POTASSIUM 3.9 mmol/L (3.5-5.1); SODIUM 136 mmol/L (135-144)
[2017-04-08 06:42] LABS: BLOOD UREA NITROGEN < 2 mg/dl (7-20)
[2017-04-08 06:52] LABS: ALANINE AMINOTRANSFERASE 298 IU/L (13-69); ALKALINE PHOSPHATASE 104 IU/L (42-121); ANION GAP 10 (8-16); ASPARTATE AMINO TRANSFERASE 73 IU/L (15-46); BILIRUBIN,INDIRECT 0.2 mg/dl (0-1.1); BILIRUBIN,TOTAL 0.2 mg/dl (0.2-1.3); CALCIUM 8.7 mg/dl (8.4-10.2); CARBON DIOXIDE 29 mmol/L (21-31); CHLORIDE 101 mmol/L (97-110); CREATININE 0.44 mg/dl (0.44-1.00); GLUCOSE 96 mg/dl (70-220); MAGNESIUM 1.8 mg/dl (1.7-2.5); POTASSIUM 3.7 mmol/L (3.5-5.1); SODIUM 136 mmol/L (135-144); TOTAL PROTEIN 6.3 g/dl (6.1-8.1)
[2017-04-08 07:04] LABS: BLOOD UREA NITROGEN < 2 mg/dl (7-20)
[2017-04-08] MEDS: MAGNESIUM HYDROXIDE 30ML CUP PO SCH (09:00)
[2017-04-08] MEDS: PYRIDOXINE IV SCH ×2 (09:12→21:06)
[2017-04-08] MEDS: SOD CHLORIDE 0.9% IV SCH ×2 (09:12→21:06)
[2017-04-08] MEDS: DEXTROSE 5%-0.45% NACL 1,000 ML IV SCH (11:25)
[2017-04-08] MEDS: CEFTRIAXONE 1 GM/50 ML (PMX) 50 ML IVPB SCH (13:24)
--- NOTE | 2017-04-08 13:47 | CONS ---
Date/Time of Note Date/Time of Note DATE: 04/08/17 TIME: 13:46 Assessment/Plan Assessment/Plan Chief Complaint/Hosp Course [place]arming 21-year-old female Ab0 with last menstrual cycle January 09, 2017 with an EDC of October 16, 2017. No known prior history of thyroid disorder. She was admitted to the hospital with hyperemesis gravidarum with severe dehydration. She has been rehydrated what was found to be hyperthyroid. In the recent past she has had some symptoms consistent with thyrotoxicosis but this is relatively recent and did not predate the . Problems: (1) Hyperemesis gravidarum with metabolic disturbance Status: Acute Comment: We will recheck her thyroid function in the morning. In addition to this and we will go ahead and give her 1 day of Solu-Cortef to try and help with a hyperemesis gravidarum. Please note that since the [facility] over to the hospital Dr. Bhakta is actively following the case I would be very interested in having him give his input and take over the management of the hyperemesis. (2) Hyperemesis gravidarum with dehydration Status: Acute Comment: Continue with IV fluids Consultation Date/Type/Reason Admit Date/Time Apr 03, 2017 at 14:02 Initial Consult Date 04/07/17 Type of Consultation: Endocrinology Reason for Consultation Hyperemesis gravidarum with hyperthyroidism. Referring Provider: PRESTON LOREDO MD 24 HR Interval Summary Free Text/Dictation Patient still with profound nausea and vomiting. Constitutional: no complaints Detailed Summary Respiratory: no complaints Cardiovascular: no complaints Gastrointestinal: nausea, vomiting Genitourinary: no complaints Exam/Review of Systems Vital Signs Vitals Intake and Output 04/07/17 04/07/17 04/08/17 15:00 23:00 07:00 Intake Total 575 ml 1250 ml Output Total 700 ml 2050 ml Balance -125 ml -800 ml Exam Charming young woman who is throwing up actively Constitutional: alert, oriented Respiratory: clear to auscultation, normal air movement Cardiovascular: nl pulses, regular rate and rhythm Neurological: other (Positive tremor) Results Result Diagram: 04/08/17 0541 04/08/17 0541 Results 24 hrs Laboratory Tests Test 04/08/17 05:41 04/08/17 07:24 White Blood Count 11.2 H Red Blood Count 3.96 L Hemoglobin 12.3 Hematocrit 35.0 L Mean Corpuscular Volume 88.4 Mean Corpuscular Hemoglobin 31.1 Mean Corpuscular Hemoglobin Concent 35.1 Red Cell Distribution Width 13.2 Platelet Count 300 Mean Platelet Volume 10.0 Neutrophils % 71.5 Lymphocytes % 15.9 L Monocytes % 11.4 Eosinophils % 0.4 Basophils % 0.3 Nucleated Red Blood Cells % 0.0 Neutrophils # 8.0 H Lymphocytes # 1.8 Monocytes # 1.3 H Eosinophils # 0.1 Basophils # 0.0 Nucleated Red Blood Cells # 0.0 Sodium Level 136 Potassium Level 3.7 Chloride Level 101 Carbon Dioxide Level 29 Anion Gap 10 Blood Urea Nitrogen < 2 L Creatinine 0.44 Glucose Level 96 Calcium Level 8.7 Phosphorus Level 3.0 Magnesium Level 1.8 Total Bilirubin 0.2 Direct Bilirubin 0.00 Indirect Bilirubin 0.2 Aspartate Amino Transf (AST/SGOT) 73 H Alanine Aminotransferase (ALT/SGPT) 298 H Alkaline Phosphatase 104 Total Protein 6.3 Albumin 3.0 L Globulin 3.30 H Albumin/Globulin Ratio 0.90 Lab Scanned Report REFERENCE LAB Medications Medications Current Medications Acetaminophen 650 mg 650 mg Q6H PRN PO PAIN LEVEL 1-3 OR FEVER Last administered on 04/05/17 10:02; Admin Dose 650 MG; Start 04/03/17 at 15:30 Ceftriaxone Sodium (Rocephin) 50 ml @ 100 mls/hr Q24H IVPB Last administered on 04/08/17 13:24; Admin Dose 100 MLS/HR; Start 04/04/17 at 13:00 Magnesium Hydroxide (Milk Of Mag) 30 ml DAILY PO Last administered on 09:33; Admin Dose 30 ML; Start 04/04/17 at 12:30 Metoclopramide HCl (Reglan) 5 mg Q4H PRN IV nausea Last administered on 09:11; Admin Dose 5 MG; Start 04/05/17 at 13:00 Phenol (Cepastat Lozenge) 1 lozenge Q1H PRN MT sore throat; Start 04/06/17 at 11:30 Vitamin A/Vitamin D 1 applic 1 applic BID PRN TOP chapped lips Last administered on 04/06/17 12:43; Admin Dose 1 APPLIC; Start 04/06/17 at 11:30 Pyridoxine HCl 25 mg/Sodium Chloride 50.25 ml @ 201 mls/hr Q12 IV Last administered on 04/08/17 09:12; Admin Dose 201 MLS/HR; Start 04/06/17 at 22: 00 Dextrose/Sodium Chloride (D5-1/2ns) 1,000 ml @ 75 mls/hr [id number] IV Last administered on 04/08/17 11:25; Admin Dose 75 MLS/HR; Start 04/07/17 at 22:00 SRIKANTH MANDUJANO MD Apr 08, 2017 13:47
[2017-04-08] MEDS: HYDROCORTISONE 100 MG INJ IV SCH ×2 (14:19→22:07)
--- NOTE | 2017-04-08 16:30 | PN ---
Date/Time of Note Date/Time of Note DATE: 04/08/17 TIME: 16:23 Assessment/Plan VTE Prophylaxis VTE Prophylaxis Intervention: ambulation Lines/Catheters IV Catheter Type (from Nrsg): Peripheral IV Assessment/Plan Assessment/Plan 1. Hyperemesis gravidarum - continue hydration while able to tolerate PO diet - Given dose of Solu-medrol to help with hyperemesis. - OB consult appreciated - Sent as direct admit by OB, Dr. Bhakta - Still not tolerating PO without emesis 2. Gestational thyrotoxicosis - Patient repeat thyroid studies show normalization of T3 and T4 and improvement in TSH. Repeat studies in the am - Endocrinology consultation appreciated. 3. Constipation- resolved - encouraged to continue PO hydration 4. ?UTI - suprapubic tenderness - UA negative for acute infection - Continue on Ceftriaxone - Cultures growing mixed ary. 5. Transaminitis- improving - may be secondary to dehydration. will continue to monitor - trending downward 6. Hypokalemia- improved - Will continue monitoring 7. Disposition - Continue monitoring until improvement in hyperemesis and able to tolerate PO intake Subjective 24 Hr Interval Summary Free Text/Dictation Patient feeling better but still not able to hold down any food. Takes Reglan prior to eating but still vomiting. Feels pressure on her bladder as well and urgency. Exam/Review of Systems Vital Signs Vitals Intake and Output 04/07/17 04/07/17 04/08/17 15:00 23:00 07:00 Intake Total 575 ml 1250 ml Output Total 700 ml 2050 ml Balance -125 ml -800 ml Exam General: Patient resting comfortably, in no acute distress. Answers questions appropriately Mentation: Patient is alert and oriented 4, Head: Normocephalic atraumatic Eyes: EOMI, pupils reactive to light Neck: Supple, nontender, midline Respiratory: Clear to auscultation bilaterally Cardiovascular: regular rate, no obvious murmurs Gastrointestinal: Mild discomfort suprapubic area, soft, bowel sounds heard. no rebound or guarding Neurological: Moves all extremities spontaneously Skin: No new skin lesions Results Result Diagram: 04/08/17 0541 04/08/17 0541 Results 24 hrs Laboratory Tests Test 04/08/17 05:41 04/08/17 07:24 White Blood Count 11.2 H Red Blood Count 3.96 L Hemoglobin 12.3 Hematocrit 35.0 L Mean Corpuscular Volume 88.4 Mean Corpuscular Hemoglobin 31.1 Mean Corpuscular Hemoglobin Concent 35.1 Red Cell Distribution Width 13.2 Platelet Count 300 Mean Platelet Volume 10.0 Neutrophils % 71.5 Lymphocytes % 15.9 L Monocytes % 11.4 Eosinophils % 0.4 Basophils % 0.3 Nucleated Red Blood Cells % 0.0 Neutrophils # 8.0 H Lymphocytes # 1.8 Monocytes # 1.3 H Eosinophils # 0.1 Basophils # 0.0 Nucleated Red Blood Cells # 0.0 Sodium Level 136 Potassium Level 3.7 Chloride Level 101 Carbon Dioxide Level 29 Anion Gap 10 Blood Urea Nitrogen < 2 L Creatinine 0.44 Glucose Level 96 Calcium Level 8.7 Phosphorus Level 3.0 Magnesium Level 1.8 Total Bilirubin 0.2 Direct Bilirubin 0.00 Indirect Bilirubin 0.2 Aspartate Amino Transf (AST/SGOT) 73 H Alanine Aminotransferase (ALT/SGPT) 298 H Alkaline Phosphatase 104 Total Protein 6.3 Albumin 3.0 L Globulin 3.30 H Albumin/Globulin Ratio 0.90 Lab Scanned Report REFERENCE LAB Medications Medications Current Medications Acetaminophen 650 mg 650 mg Q6H PRN PO PAIN LEVEL 1-3 OR FEVER Last administered on 04/05/17 10:02; Admin Dose 650 MG; Start 04/03/17 at 15:30 Ceftriaxone Sodium (Rocephin) 50 ml @ 100 mls/hr Q24H IVPB Last administered on 04/08/17 13:24; Admin Dose 100 MLS/HR; Start 04/04/17 at 13:00 Magnesium Hydroxide (Milk Of Mag) 30 ml DAILY PO Last administered on 09:33; Admin Dose 30 ML; Start 04/04/17 at 12:30 Metoclopramide HCl (Reglan) 5 mg Q4H PRN IV nausea Last administered on 13:58; Admin Dose 5 MG; Start 04/05/17 at 13:00 Phenol (Cepastat Lozenge) 1 lozenge Q1H PRN MT sore throat; Start 04/06/17 at 11:30 Vitamin A/Vitamin D 1 applic 1 applic BID PRN TOP chapped lips Last administered on 04/06/17 12:43; Admin Dose 1 APPLIC; Start 04/06/17 at 11:30 Pyridoxine HCl 25 mg/Sodium Chloride 50.25 ml @ 201 mls/hr Q12 IV Last administered on 04/08/17 09:12; Admin Dose 201 MLS/HR; Start 04/06/17 at 22: 00 Dextrose/Sodium Chloride (D5-1/2ns) 1,000 ml @ 75 mls/hr [id number] IV Last administered on 04/08/17 11:25; Admin Dose 75 MLS/HR; Start 04/07/17 at 22:00 Hydrocortisone (Solu-Cortef) 50 mg Q8 IV Last administered on 04/08/17 14:19 ; Admin Dose 50 MG; Start 04/08/17 at 14:00; Stop 04/09/17 at 13:59 PRESTON LOREDO MD Apr 08, 2017 16:30
--- NOTE | 2017-04-08 19:00 | PN ---
Date/Time of Note Date/Time of Note DATE: 04/08/17 TIME: 18:54 OB Subjective Subjective Subjective feels better more likely motion sickness( vertigo?) OB Objective Objective Objective low TSH high FT4 repeated one nl 2.2 repeated TSH OB Assessment/Plan Other Assessment: hyperemesis gravidarum 12w3d R/O hypertyroidism kris consult vertigo ? Other plan: kris consult B-D for sleep d/c ANNAMARIA Goldsmith MD Apr 08, 2017 19:00
[2017-04-08] MEDS ORDERED: DIPHENHYDRAMINE 50 MG INJ IV SCH (21:00)
[2017-04-09] MEDS: DEXTROSE 5%-0.45% NACL 1,000 ML IV SCH ×2 (01:19→13:51)
[2017-04-09] MEDS: HYDROCORTISONE 100 MG INJ IV SCH (05:58)
[2017-04-09] MEDS: METOCLOPRAMIDE 10 MG INJ IV PRN ×2 (06:08→17:34)
[2017-04-09 06:30] LABS: BASOPHILS % 0.1 % (0.0-2.0); HEMOGLOBIN 11.7 g/dl (12.0-16.0); LYMPHOCYTES # 1.4 10^3/ul (0.8-2.9); LYMPHOCYTES % 14.8 % (18.0-55.0); MEAN CORPUSCULAR HEMOGLOBIN 31.5 pg (29.0-33.0); MEAN CORPUSCULAR HGB CONC 35.5 g/dl (32.0-37.0); MEAN CORPUSCULAR VOLUME 88.7 fl (72.0-104.0); MEAN PLATELET VOLUME 9.9 fl (7.4-10.4); MONOCYTE # 0.8 10^3/ul (0.3-0.9); MONOCYTES % 8.6 % (0.0-13.0); NEUTROPHIL # 7.1 10^3/ul (1.6-7.5); NEUTROPHILS % 75.6 % (30.0-74.0); PLATELET COUNT 287 10^3/UL (140-415); RED BLOOD COUNT 3.72 10^6/ul (4.20-5.40); RED CELL DISTRIBUTION WIDTH 13.2 % (11.5-14.5); WHITE BLOOD COUNT 9.4 10^3/ul (4.8-10.8)
[2017-04-09 07:08] LABS: CALCIUM 8.5 mg/dl (8.4-10.2); CREATININE 0.44 mg/dl (0.44-1.00); PHOSPHORUS 4.3 mg/dl (2.5-4.9); POTASSIUM 3.8 mmol/L (3.5-5.1)
[2017-04-09 07:11] LABS: FREE T3 3.73 pg/ml (2.77-5.27)
[2017-04-09 07:25] LABS: THYROID STIMULATING HORMONE 0.045 MIU/L (0.465-4.680)
[2017-04-09] MEDS: MAGNESIUM HYDROXIDE 30ML CUP PO SCH (09:00)
[2017-04-09] MEDS: PYRIDOXINE IV SCH (09:09)
[2017-04-09] MEDS: SOD CHLORIDE 0.9% IV SCH (09:09)
--- NOTE | 2017-04-09 15:37 | PN ---
Date/Time of Note Date/Time of Note DATE: 04/09/17 TIME: 15:29 Assessment/Plan VTE Prophylaxis VTE Prophylaxis Intervention: ambulation Lines/Catheters IV Catheter Type (from Nrsg): Peripheral IV Assessment/Plan Assessment/Plan 1. Hyperemesis gravidarum - OB on board and Pamela consultation placed for further recommendations - continue hydration while able to tolerate PO diet - Sent as direct admit by OB, Dr. Bhakta - Trying to eat but still experiencing nausea even when given medications before meals 2. Gestational thyrotoxicosis - Patient repeat thyroid studies show normalization of T3 and T4 and improvement in TSH. - Endocrinology consultation appreciated. 3. Constipation- resolved - encouraged to continue PO hydration 4. Dehydration - Continue on IVF and encouraged PO hydration as well - UA negative for acute infection 5. Transaminitis- improving - may be secondary to dehydration. will continue to monitor 6. Hypokalemia- improved - Will continue monitoring 7. Disposition - Await recommendations from Perinatologist - Patient still hesitant about returning home since unable to tolerate PO well Subjective 24 Hr Interval Summary Free Text/Dictation Patient states she feeling better but does have some dizziness when walking around. Noticed her urine is dark as well and feels dehydrated. Still experiencing nausea with vomiting when eating Exam/Review of Systems Vital Signs Vitals Intake and Output 04/08/17 04/08/17 04/09/17 15:00 23:00 07:00 Intake Total 665 ml 1290.25 ml 600 ml Output Total 600 ml 950 ml 300 ml Balance 65 ml 340.25 ml 300 ml Exam General: Patient resting comfortably, in no acute distress. Answers questions appropriately Head: Normocephalic atraumatic Eyes: EOMI, pupils reactive to light Neck: Supple, nontender, midline Respiratory: Clear to auscultation bilaterally Cardiovascular: regular rate, no obvious murmurs Gastrointestinal: Mild discomfort suprapubic area, soft, bowel sounds heard. no rebound or guarding Neurological: Moves all extremities spontaneously Skin: No new skin lesions Results Result Diagram: 04/09/17 0600 04/09/17 0600 Results 24 hrs Laboratory Tests Test 04/09/17 06:00 White Blood Count 9.4 Red Blood Count 3.72 L Hemoglobin 11.7 L Hematocrit 33.0 L Mean Corpuscular Volume 88.7 Mean Corpuscular Hemoglobin 31.5 Mean Corpuscular Hemoglobin Concent 35.5 Red Cell Distribution Width 13.2 Platelet Count 287 Mean Platelet Volume 9.9 Neutrophils % 75.6 H Lymphocytes % 14.8 L Monocytes % 8.6 Eosinophils % 0.0 Basophils % 0.1 Nucleated Red Blood Cells % 0.0 Neutrophils # 7.1 Lymphocytes # 1.4 Monocytes # 0.8 Eosinophils # 0.0 Basophils # 0.0 Nucleated Red Blood Cells # 0.0 Sodium Level 136 Potassium Level 3.8 Chloride Level 104 Carbon Dioxide Level 25 Anion Gap 11 Blood Urea Nitrogen 2 L Creatinine 0.44 Glucose Level 124 Calcium Level 8.5 Phosphorus Level 4.3 Magnesium Level 2.0 Albumin 3.0 L Thyroid Stimulating Hormone (TSH) 0.045 L Free Thyroxine 1.89 Free Triiodothyronine (T3) pg/mL 3.73 Medications Medications Current Medications Acetaminophen (Tylenol Tab) 650 mg Q6H PRN PO PAIN LEVEL 1-3 OR FEVER Last administered on 04/05/17 10:02; Admin Dose 650 MG; Start 04/03/17 at 15:30 Magnesium Hydroxide (Milk Of Mag) 30 ml DAILY PO Last administered on 09:33; Admin Dose 30 ML; Start 04/04/17 at 12:30 Metoclopramide HCl (Reglan) 5 mg Q4H PRN IV nausea Last administered on 06:08; Admin Dose 5 MG; Start 04/05/17 at 13:00 Phenol (Cepastat Lozenge) 1 lozenge Q1H PRN MT sore throat; Start 04/06/17 at 11:30 Vitamin A/Vitamin D 1 applic 1 applic BID PRN TOP chapped lips Last administered on 04/06/17 12:43; Admin Dose 1 APPLIC; Start 04/06/17 at 11:30 Pyridoxine HCl 25 mg/Sodium Chloride 50.25 ml @ 201 mls/hr Q12 IV Last administered on 04/09/17 09:09; Admin Dose 201 MLS/HR; Start 04/06/17 at 22: 00 Dextrose/Sodium Chloride (D5-1/2ns) 1,000 ml @ 75 mls/hr [id number] IV Last administered on 04/09/17 13:51; Admin Dose 75 MLS/HR; Start 04/07/17 at 22:00 Diphenhydramine HCl (Benadryl) 25 mg HS IV Last administered on 04/08/17t 21: 28; Admin Dose 25 MG; Start 04/08/17 at 21:00 PRESTON LOREDO MD Apr 09, 2017 15:37
[2017-04-09] MEDS ORDERED: AL HYDROX/MG HYDROX/SIMETH 30 ML CUP PO PRN (17:30)
--- NOTE | 2017-04-09 18:38 | PDOCDIS ---
Discharge Instructions DIAGNOSIS Discharge Diagnosis hyperemesis gravidarum alleviated CONDITION Patient Condition: Stable HOME CARE INSTRUCTIONS: Diet Instructions: small feeding no spicy nogrease food ACTIVITY: Activity Restrictions: No Restrictions Bathing Restrictions: Shower FOLLOW UP/APPOINTMENTS Follow-up Plan one week at my office ANNAMARIA GARCIA MD Apr 09, 2017 18:38
--- NOTE | 2017-04-09 19:23 | DS ---
Date/Time of Note Date/Time of Note DATE: 04/09/17 TIME: 19:22 Obstetrical Discharge Record Final Diagnosis Final Diagnosis: not delivered Other Final Diagnosis hyperemesis gravidarum 12w 4d Complications Hyperemesis Augmentation: No Induction: No Rupture of Membranes: No Condition on Discharge Physical Assessment Last Vitals: vss afebrile Voiding: Yes Bowel Movement: Yes Breast: Soft, non-tender Calf Tenderness: No Patient Condition: Stable ANNAMARIA GARCIA MD Apr 09, 2017 19:23
--- NOTE | 2017-04-09 19:30 | DS ---
Date/Time of Note Date/Time of Note DATE: 04/09/17 TIME: 19:25 Discharge Summary Admission/Discharge Info Admit Date/Time Apr 03, 2017 at 14:02 Discharge Date/Time Apr 09, 2017 at 18:50 Discharge Diagnosis hyperemesis gravidarum alleviated Patient Condition: Stable Consults Dr Carissa Juárez Procedures none Iv hydration Hx of Present Illness Patient is a 21-year-old otherwise healthy female who is 11 weeks , obese Dr. Garcia, who presents as a direct admit from Dr. Garcia's office for intractable nausea vomiting. Patient states that she has been vomiting for approximately over 1 week and has not had a bowel movement for 6 days. Patient states that she takes no medications and she also has a mild suprapubic pain. Patient denies any chest pain, shortness of breath, headache at this time and states that the last time she vomited was this morning but is nauseous currently. PMH: 11 week PSH: None Meds: none with small feeding able to keep food better today only x2 vomit and nausea better sent home with reglan and pyridoxine will f/u at office in one week Hospital Course [facility] 21-year-old female Ab0 with last menstrual cycle January 09, 2017 with an EDC of October 16, 2017. No known prior history of thyroid disorder. She was admitted to the hospital with hyperemesis gravidarum with severe dehydration. She has been rehydrated what was found to be hyperthyroid. In the recent past she has had some symptoms consistent with thyrotoxicosis but this is relatively recent and did not predate the . Home Meds Reported Medications Doxylamine/Pyridoxine Hcl (KALPESH MCKEON 10-10 MG TABLET) 1 Each Tablet., 1 TAB PO, TAB 04/03/17 Follow-up Plan one week at my office Primary Care Provider Not On Staff Doctor Time spent on discharge: < 30 minutes Pending Labs Laboratory Tests Test 04/09/17 06:00 White Blood Count 9.410^3/ul (4.8-10.8) Red Blood Count 3.7210^6/ul (4.20-5.40) Hemoglobin 11.7g/dl (12.0-16.0) Hematocrit 33.0% (37.0-47.0) Mean Corpuscular Volume 88.7fl (72.0-104.0) Mean Corpuscular Hemoglobin 31.5pg (29.0-33.0) Mean Corpuscular Hemoglobin Concent 35.5g/dl (32.0-37.0) Red Cell Distribution Width 13.2% (11.5-14.5) Platelet Count 33994^3/UL (140-415) Mean Platelet Volume 9.9fl (7.4-10.4) Neutrophils % 75.6% (30.0-74.0) Lymphocytes % 14.8% (18.0-55.0) Monocytes % 8.6% (0.0-13.0) Eosinophils % 0.0% (0.0-7.0) Basophils % 0.1% (0.0-2.0) Nucleated Red Blood Cells % 0.0/100WBC (0.0-0.0) Neutrophils # 7.110^3/ul (1.6-7.5) Lymphocytes # 1.410^3/ul (0.8-2.9) Monocytes # 0.810^3/ul (0.3-0.9) Eosinophils # 0.010^3/ul (0.0-0.5) Basophils # 0.010^3/ul (0.0-0.1) Nucleated Red Blood Cells # 0.010^3/ul (0.0-0.0) Sodium Level 136mmol/L (135-144) Potassium Level 3.8mmol/L (3.5-5.1) Chloride Level 104mmol/L (97-110) Carbon Dioxide Level 25mmol/L (21-31) Anion Gap 11 (8-16) Blood Urea Nitrogen 2mg/dl (7-20) Creatinine 0.44mg/dl (0.44-1.00) Glucose Level 124mg/dl (70-220) Calcium Level 8.5mg/dl (8.4-10.2) Phosphorus Level 4.3mg/dl (2.5-4.9) Magnesium Level 2.0mg/dl (1.7-2.5) Albumin 3.0g/dl (3.3-4.9) Thyroid Stimulating Hormone (TSH) 0.045MIU/L (0.465-4.680) Free Thyroxine 1.89ng/dl (0.78-2.49) Free Triiodothyronine (T3) pg/mL 3.73pg/ml (2.77-5.27) ANNAMARIA GARCIA MD Apr 09, 2017 19:30
== END 2017-04-09 18:50 | disposition home or self-care (01) | DRG 781 ==
LOC: OBG 14:02
PROVIDERS: ADMIT Internal Medicine; ATTEND Internal Medicine
DX: O21.1 Hyperemesis gravidarum with metabolic disturbance (principal); O99.89 Other specified diseases and conditions complicating pregnancy, childbirth and the puerperium; E05.90 Thyrotoxicosis, unspecified without thyrotoxic crisis or storm; K59.00 Constipation, unspecified; O99.281 Endocrine, nutritional and metabolic diseases complicating pregnancy, first trimester; Z3A.11 11 weeks gestation of pregnancy
CPT/HCPCS: 80053; 80069; 81001; 83735; 84100; 84439; 84443; 84481; 85025; 85651; 86376; 86704; 86709; 86803; 87086; 87340; 90686; J0696; J1200; J1720; J2405; J2765; J3480; J7040; J7042

== ENCOUNTER 2017-04-29 17:51 | Emergency (ER) | payer OTHER ==
[~2017-04-29] VITALS: Wt 45.3 kg
[~2017-04-29 17:51] MED LIST: DOXY1TAB3 PO
[2017-04-29] MEDS ORDERED: ONDANSETRON (ODT) 4 MG TAB ODT STA (18:48)
--- NOTE | 2017-04-29 18:57 | ERD ---
ER Documentation Chief Complaint Chief Complaint n/v, 16 wks preg HPI 21-year-old female presents here to emergency department for complaints of vomiting episodes, patient has had problems with hyperemesis gravidarum, patient is approximately 16 weeks , patient was admitted before for the same problem. Patient is 1 para 0 0. Patient denies any vaginal bleeding. Patient has been having abdominal pain because of the vomiting, as multiple episodes today. Patient is vomited blood in the vomit. Patient does not have any blood in stool or black stool. Patient does not have any diarrhea or constipation. ROS All systems reviewed and are negative except as per history of present illness. Medications Home Meds Reported Medications Doxylamine/Pyridoxine Hcl (KALPESH MCKEON 10-10 MG TABLET) 1 Each Tablet., 1 TAB PO, TAB 04/03/17 Allergies Allergies: Coded Allergies: codeine (Verified Allergy, Intermediate, blister, 04/03/17) PMhx/Soc Medical and Surgical Hx: pt denies Medical Hx, pt denies Surgical Hx FmHx Family History: No coronary disease, No diabetes, No other Physical Exam Vitals Vital Signs Date Time Temp Pulse Resp B/P Pulse Ox O2 Delivery O2 Flow Rate FiO2 04/29/17 17:52 98.8 76 20 109/58 100 Physical Exam GENERAL: The patient is well developed and appropriate for usual state of health, in no apparent distress. CHEST: Clear to auscultation bilaterally. There are no rales, wheezes or rhonchi. HEART: Regular rate and rhythm. No murmurs, clicks, rubs or gallops. No S3 or S4. ABDOMEN: Soft, nontender and nondistended. Good bowel sounds. No rebound or guarding. No gross peritonitis. No gross organomegaly or masses. No Polo sign or McBurney point tenderness. BACK: No midline or flank tenderness. EXTREMITIES: Equal pulses bilaterally. There is no peripheral clubbing, cyanosis or edema. No focal swelling or erythema. Full range of motion. Grossly neurovascularly intact. NEURO: Alert and oriented. Cranial nerves 2-12 intact. Motor strength in all 4 extremities with 5/5 strength. Sensation grossly intact. Normal speech and gait. SKIN: There is no apparent rash or petechia. The skin is warm and dry. HEMATOLOGIC AND LYMPHATIC: There is no evidence of excessive bruising or lymphedema. No gross cervical, axillary, or inguinal lymphadenopathy. Result Diagram: 04/29/17190404/29/171904 Results 24 hrs Laboratory Tests Test 04/29/17 19:05 White Blood Count 8.810^3/ul Red Blood Count 4.2610^6/ul Hemoglobin 13.3g/dl Hematocrit 38.3% Mean Corpuscular Volume 89.9fl Mean Corpuscular Hemoglobin 31.2pg Mean Corpuscular Hemoglobin Concent 34.7g/dl Red Cell Distribution Width 13.2% Platelet Count 20286^3/UL Mean Platelet Volume 9.4fl Neutrophils % 66.5% Lymphocytes % 25.4% Monocytes % 7.2% Eosinophils % 0.5% Basophils % 0.1% Nucleated Red Blood Cells % 0.0/100WBC Neutrophils # 5.910^3/ul Lymphocytes # 2.210^3/ul Monocytes # 0.610^3/ul Eosinophils # 0.010^3/ul Basophils # 0.010^3/ul Nucleated Red Blood Cells # 0.010^3/ul Urine Color BRITTANY Urine Clarity SLIGHTLY CLOUDY Urine pH 6.0 Urine Specific Christoval 1.020 Urine Ketones 1+mg/dL Urine Nitrite NEGATIVEmg/dL Urine Bilirubin NEGATIVEmg/dL Urine Urobilinogen 2+mg/dL Urine Leukocyte Esterase NEGATIVELeu/ul Urine Microscopic RBC 0/HPF Urine Microscopic WBC 0/HPF Urine Squamous Epithelial Cells MANY/HPF Urine Mucus MANY/HPF Urine Hemoglobin NEGATIVEmg/dL Urine Glucose NEGATIVEmg/dL Urine Total Protein NEGATIVEmg/dl Sodium Level 140mmol/L Potassium Level 3.7mmol/L Chloride Level 103mmol/L Carbon Dioxide Level 25mmol/L Anion Gap 16 Blood Urea Nitrogen 7mg/dl Creatinine 0.61mg/dl Glucose Level 79mg/dl Calcium Level 9.3mg/dl Total Bilirubin 0.3mg/dl Direct Bilirubin 0.00mg/dl Indirect Bilirubin 0.3mg/dl Aspartate Amino Transf (AST/SGOT) 22IU/L Alanine Aminotransferase (ALT/SGPT) 29IU/L Alkaline Phosphatase 79IU/L Total Protein 7.4g/dl Albumin 3.9g/dl Globulin 3.50g/dl Albumin/Globulin Ratio 1.11 Lipase 26U/L Beta HCG, Quantitative 35612.0mIU/ml Current Medications Medications (Trade) Dose Ordered Sig/Angélica Route PRN Reason Start Time Stop Time Status Last Admin Dose Admin Ondansetron HCl (Zofran Odt) 4 mg ONCE STAT ODT 04/29/17 18:48 04/29/17 18:51 DC 04/29/17 19:11 Patient was given Zofran here in the emergency department. After treatment, patient was able to tolerate po fluids here in the emergency department without any vomiting. There is no signs and symptoms of dehydration. PROCEDURE: US OB. US OB Transabd / Tri CLINICAL INDICATION: Abdominal pain TECHNIQUE: Multiple sonographic images of the pelvis were obtained. The images were reviewed on a PACS workstation. COMPARISON: No prior studies are available for comparison. FINDINGS: There is a single viable intrauterine gestation. Cardiac activity is present with 154 beats per minute. There is a breech / variable presentation. Measurements were made in order to determine age. The results are as follows: BPD = 3.3 cm. HC = 12.2 cm. AC = 10.3 cm. FL = 1.8 cm. Estimated gestational age of approximately 16 weeks and 0 days. The estimated date of delivery is 10/14/2017. Estimated delivery date by last menstrual period 10/11/2017. The EFW = 136 grams . The placenta is posterior, grade 0. There is no evidence for an abruption or placenta previa. There is a normal amount of amniotic fluid with maximum vertical pocket =5.8 cm IMPRESSION: Single viable intrauterine gestation of approximately 16 weeks and 0 days. The estimated date of delivery is 10/14/2017 RPTAT: HBST . .Luis A Chu MD, Date Time Electronically viewed and signed by .Luis A Chu MD, MD on 04/29/2017 19:37 .T/ CC: MARTINE MAE [employer] Procedures/MDM Medical decision making: Patient symptoms was likely is consistent with hyperemesis gravidarum, at this time, no symptoms of any electrolyte imbalance, no symptoms of dehydration. Patient is not actively vomiting at this time. Patient is a viable 16 week , but hCG is normal for patient. No symptoms of any threatened . Prescription was given for Zofran, is advised to follow-up with primary care doctor 1-2 days for reevaluation of symptoms. Patient is advised to return to emergency department for any worsening symptoms. Disposition: Home. Stable Departure Diagnosis: Primary Impression: Hyperemesis gravidarum Condition: Stable Patient Instructions: Hyperemesis Gravidarum MARTINE MAE NP Apr 29, 2017 18:57
[2017-04-29 19:27] LABS: BASOPHILS % 0.1 % (0.0-2.0); EOSINOPHILS % 0.5 % (0.0-7.0); HEMATOCRIT 38.3 % (37.0-47.0); HEMOGLOBIN 13.3 g/dl (12.0-16.0); LYMPHOCYTES # 2.2 10^3/ul (0.8-2.9); LYMPHOCYTES % 25.4 % (18.0-55.0); MEAN CORPUSCULAR HEMOGLOBIN 31.2 pg (29.0-33.0); MEAN CORPUSCULAR HGB CONC 34.7 g/dl (32.0-37.0); MEAN CORPUSCULAR VOLUME 89.9 fl (72.0-104.0); MEAN PLATELET VOLUME 9.4 fl (7.4-10.4); MONOCYTE # 0.6 10^3/ul (0.3-0.9); MONOCYTES % 7.2 % (0.0-13.0); NEUTROPHIL # 5.9 10^3/ul (1.6-7.5); NEUTROPHILS % 66.5 % (30.0-74.0); PLATELET COUNT 420 10^3/UL (140-415); RED BLOOD COUNT 4.26 10^6/ul (4.20-5.40); RED CELL DISTRIBUTION WIDTH 13.2 % (11.5-14.5); WHITE BLOOD COUNT 8.8 10^3/ul (4.8-10.8)
--- NOTE | 2017-04-29 19:37 | RADRPT ---
PROCEDURE: US OB. US OB Transabd 06/27 Tri CLINICAL INDICATION: Abdominal pain TECHNIQUE: Multiple sonographic images of the pelvis were obtained. The images were reviewed on a PACS workstation. COMPARISON: No prior studies are available for comparison. FINDINGS: There is a single viable intrauterine gestation. Cardiac activity is present with 154 beats per min negrita. There is a breech / variable presentation. Measurements were made in order to determine age. The results are as follows: BPD =3.3 cm. HC =12.2 cm. AC =10.3 cm. FL =1.8 cm. Estimated gestational age of approximately 16 weeks and 0 days. The estimated date of delivery is 10/14/2017. Estimated delivery date by last menstrual period 10/11. The EFW = 136 grams . The placenta is posterior, grade 0. There is no evidence for an abruption or placenta previa. There is a normal amount of amniotic fluid with maximum vertical pocket =5.8 cm IMPRESSION: Single viable intrauterine gestation of approximately 16 weeks and 0 days. The estimated date of de livery is 10/14/2017 RPTAT: HBST . .Luis A Chu MD, MD Date Time Electronically viewed and signed by .Luis A Chu MD, MD on 04/29/2017 19:37 .T/
[2017-04-29 19:51] LABS: ADD UMIC NO; UR ASCORBIC ACID NEGATIVE (NEGATIVE); UR BILIRUBIN (Dip) NEGATIVE (NEGATIVE); UR BLOOD (Dip) NEGATIVE (NEGATIVE); UR CLARITY SLIGHTLY CLOUDY (CLEAR); UR COLOR AMBER (YELLOW); UR GLUCOSE (Dip) NEGATIVE (NEGATIVE); UR KETONES (Dip) 1+ mg/dL (NEGATIVE); UR LEUKOCYTE ESTERASE (Dip) NEGATIVE Leu/ul (NEGATIVE); UR MUCUS MANY /HPF (NONE SEEN); UR NITRITE (Dip) NEGATIVE (NEGATIVE); UR RBC 0 /HPF (0-5); UR SQUAMOUS EPITHELIAL CELL MANY /HPF (FEW); UR TOTAL PROTEIN (Dip) NEGATIVE (NEGATIVE); UR UROBILINOGEN (Dip) 2+ mg/dL (NEGATIVE)
[2017-04-29 20:19] LABS: ALBUMIN 3.9 g/dl (3.3-4.9); ALBUMIN/GLOBULIN RATIO 1.11; BILIRUBIN,INDIRECT 0.3 mg/dl (0-1.1); BILIRUBIN,TOTAL 0.3 mg/dl (0.2-1.3); CALCIUM 9.3 mg/dl (8.4-10.2); CREATININE 0.61 mg/dl (0.44-1.00); POTASSIUM 3.7 mmol/L (3.5-5.1); TOTAL PROTEIN 7.4 g/dl (6.1-8.1)
[2017-04-29] MEDS ORDERED: ONDA4TAB14 PO (20:32)
== END 2017-04-29 20:42 | disposition home or self-care (01) ==
LOC: FTE 17:51
DX: O21.0 Mild hyperemesis gravidarum (principal); Z3A.16 16 weeks gestation of pregnancy
CPT/HCPCS: 36415; 76805; 80053; 81001; 83690; 84702; 85025; 86900; 86901; Z7502; Z7610; 81003